=== PATIENT | female | born 1945 | race Caucasian/White ===

== ENCOUNTER → 2018-02-25 09:04 | Outpatient (CLI) | payer MEDICARE, OTHER, SELFPAY ==
[2018-02-25 10:43] LABS: Hemoglobin A1C% w Est Avg Glu 6.3 % (4.0-6.0)
[2018-02-25 11:08] LABS: Alanine Aminotransferase 25 IU/L (9-52); Albumin 4.1 g/dL (3.5-5.0); Albumin Globulin Ratio 0.9 (1.0-2.8); Alkaline Phosphatase 92 U/L (38-126); BUN Creatinine Ratio 22.5 (6-22); Bilirubin Total 0.9 mg/dL (0.2-1.3); Blood Urea Nitrogen 18 mg/dL (7-17); Calcium 8.9 mg/dL (8.4-10.2); Carbon Dioxide 22 mmol/L (22-32); Chloride 109 mmol/L (98-107); Cholesterol 174 mg/dL (140-199); Estimated Glomerular Filt Rate > 60.0 mL/min (>60); Globulin 4.7 g/dL (1.7-4.1); Glucose 119 mg/dL (80-110); HDL Cholesterol 51 mg/dL (40-60); LDL Cholesterol Calculated 96 mg/dL (<100); Sodium 142 mmol/L (137-145); Total Protein 8.8 g/dL (6.3-8.2); Triglycerides 137 mg/dL (35-150)
[2018-02-25 11:13] LABS: HEMOLYSIS 129 (0-50)
== END ==
PROVIDERS: PCP Physician Assistant; Visit Provider Internal Medicine
DX: E11.9 Type 2 diabetes mellitus without complications (principal); E78.00 Pure hypercholesterolemia, unspecified
CPT/HCPCS: 36415; 80053; 80061; 83036

== ENCOUNTER → 2018-03-09 10:25 | Outpatient (CLI) | payer MEDICARE, OTHER, SELFPAY ==
[2018-03-09 11:48] LABS: TSH w/ Reflex to FT4 4.33 uIU/mL (0.47-4.68)
[2018-03-13 02:57] LABS: Albumin 3.4 g/dL (3.8-4.8); Alpha 1 Globulin 0.3 g/dL (0.2-0.3); Alpha 2 Globulin 0.8 g/dL (0.5-0.9); Beta 1 Globulin 0.5 g/dL (0.4-0.6); Protein, Total 7.4 g/dL (6.1-8.1)
== END ==
PROVIDERS: PCP Internal Medicine; Visit Provider Internal Medicine
DX: E11.9 Type 2 diabetes mellitus without complications (principal); F32.9 Major depressive disorder, single episode, unspecified; I10 Essential (primary) hypertension
CPT/HCPCS: 36415; 84155; 84165; 84443

== ENCOUNTER → 2018-04-26 09:19 | Outpatient (CLI) | payer MEDICARE, OTHER, SELFPAY ==
[2018-04-26 09:44] LABS: Add Manual Diff / Slide Review NO; Basophils Percent Auto 0.5 % (0-2); Eosinophils Percent Auto 2.4 % (2-4); Hematocrit 39.1 % (36-46); Hemoglobin 13.2 g/dL (12.0-16.0); Lymphocytes Percent Auto 21.5 % (25-40); Mean Corpuscular HGB Conc 33.7 % (30-36); Mean Corpuscular Hemoglobin 29.4 PG (26-34); Mean Corpuscular Volume 87.1 fL (80-100); Monocytes Percent Auto 10.4 % (3-14); Neutrophils Absolute Auto 2500 /uL (3000-5900); Neutrophils Percent Auto 65.2 % (50-75); Platelet Count 216 X10^3/uL (150-400); Red Blood Cell Count 4.49 X10^6/uL (4.0-5.2); Red Cell Distribution Width 13.7 % (11.6-14.8); White Blood Cell Count 3.9 X10^3/uL (4.5-11.0)
[2018-04-26 10:09] LABS: Alanine Aminotransferase 29 IU/L (9-52); Alkaline Phosphatase 77 U/L (38-126); Aspartate Aminotransferase 23 IU/L (14-36); BUN Creatinine Ratio 17.5 (6-22); Bilirubin Total 0.3 mg/dL (0.2-1.3); Blood Urea Nitrogen 14 mg/dL (7-17); Calcium 8.8 mg/dL (8.4-10.2); Carbon Dioxide 26 mmol/L (22-32); Chloride 107 mmol/L (98-107); Estimated Glomerular Filt Rate > 60.0 mL/min (>60); Globulin 4.1 g/dL (1.7-4.1); Glucose 116 mg/dL (80-110); HEMOLYSIS < 15 (0-50); Lactate Dehydrogenase 382 U/L (313-618); Potassium 4.2 mmol/L (3.4-5.1); Sodium 144 mmol/L (137-145); Total Protein 8.1 g/dL (6.3-8.2)
[2018-04-28 13:58] LABS: Immunoglobulin A 243 mg/dL (81-463); Immunoglobulin G, Quantitative 1913 mg/dL (694-1618); Immunoglobulin M, Quantitative 357 mg/dL (48-271)
[2018-04-28 14:59] LABS: Free Kappa Light Chain 35.8 mg/L (3.3-19.4); Free Lambda 32.6 mg/L (5.7-26.3)
[2018-04-29 17:50] LABS: Albumin 3.4 g/dL (3.8-4.8); Alpha 1 Globulin 0.3 g/dL (0.2-0.3); Alpha 2 Globulin 0.8 g/dL (0.5-0.9); Beta 1 Globulin 0.5 g/dL (0.4-0.6); Protein, Total 7.4 g/dL (6.1-8.1)
[2018-04-29 20:06] LABS: Beta-2-Microglobulin 3.23 mg/L (< 2.52)
== END ==
PROVIDERS: PCP Internal Medicine; Visit Provider Internal Medicine Hematology & Oncology
DX: D47.2 Monoclonal gammopathy (principal)
CPT/HCPCS: 36415; 80053; 82232; 82784; 83615; 83883; 84155; 84165; 85025

== ENCOUNTER → 2018-12-07 15:34 | Outpatient (CLI) | payer MEDICARE, OTHER, SELFPAY ==
[2018-12-07 16:50] LABS: Erythrocyte Sedimentation Rate 47 MM/HR (0-20)
== END ==
PROVIDERS: Family Provider Internal Medicine; PCP Internal Medicine; Visit Provider Internal Medicine
DX: M35.3 Polymyalgia rheumatica (principal)
CPT/HCPCS: 36415; 85651

== ENCOUNTER → 2019-07-14 14:11 | Outpatient (CLI) | payer MEDICARE, OTHER, SELFPAY ==
[2019-07-14 15:26] LABS: Hemoglobin A1C% w Est Avg Glu 6.8 % (4.0-6.0)
== END ==
PROVIDERS: PCP Internal Medicine; Visit Provider Internal Medicine
DX: E11.9 Type 2 diabetes mellitus without complications (principal)
CPT/HCPCS: 36415; 83036

== ENCOUNTER → 2019-11-18 10:41 | Outpatient (CLI) | payer MEDICARE, OTHER, SELFPAY ==
--- NOTE | 2019-11-18 | DI.NM.S_ITS ---
PROCEDURE: NM KEVIN PERF SPECT R&S PHARM Rest and pharmacological stress myocardial perfusion SPECT with gated imaging and ejection fraction RADIOPHARMACEUTICAL: 27.3 mCi Tc-99m tetrafosmin IV at rest and 24.3 mCi Tc-99m tetrafosmin IV at peak effect of pharmacological stress. [id number] was performed. INDICATIONS: Dyspnea, unspecified TECHNIQUE: Radiopharmaceutical was injected at peak stress test, and also at rest. SPECT images were obtained. SPECT myocardial perfusion images were displayed in short axis, horizontal long axis, and vertical long axis views. Gated images were reviewed using [employer] software. COMPARISON: None. CARDIAC STRESS: A pharmacologic stress test was performed under the supervision of an attending staff, using an infusion of lexiscan 0.4m IV X1. Hemodynamic data: There is normal blood pressure and heart rate response to pharmacologic stress. Symptoms: The patient denied anginal chest pain. Aminophylline: none EKG: No diagnostic changes of ischemia; no ectopy. FINDINGS: Raw data: There is good myocardial uptake of radiotracer. No significant motion artifacts. Lpab-dn-xcmnr ratio is 0.27 (normal is less than 0.38 for tetrafosmin tracer). Left ventricle function: Gated images demonstrate normal left ventricular wall thickening. No segmental wall motion abnormalities. No transient ischemic dilation; TID is 0.78 (normal less than 1.3). Left ventricle resting end diastolic volume is 72 mL. Left ventricle stress ejection fraction is 89%; normal range is above 45%. Myocardial perfusion: There is normal distribution of activity in the right and left ventricular myocardium. No fixed or reversible perfusion defects. IMPRESSION: low risk, normal pharmaceutical nuclear stress test 1) No perfusion evidence of ischemia or infarction. 2) Normal left ventricular size, wall motion, and systolic function (EF post stress 89%0. 3) No ECG evidence of ischemia. 4) No angina during the study. 5) No prior nuclear stress test available for comparison. Dictated by: Stephanie Sykes MD on 11/21/2019 at 12:34 Approved by: Stephanie Sykes MD on 11/21/2019 at 12:36
--- NOTE | 2019-11-18 11:49 | PM.TREADMILL ---
Cardiac Stress Test Report Referral & Results Date Patient Seen: 11/18/19 Time Patient Seen: 11:49 Requesting provider: Marta Carroll Indication: dyspnea Rest ECG: sinus rhythm with incomplete RBBB Procedure Note: After lexiscan injection had minimal dyspnea, no chest discomfort. No significant ST changes on ECG after lexiscan injection, no ectopy. No reveral agent needed. Impression: Normal lexiscan stress test Nuclear images pending Please note: Actual ECG tracings can be found in the PACS system.
== END ==
PROVIDERS: PCP Internal Medicine; Referring Provider Physician Assistant; Visit Provider Physician Assistant
DX: R06.00 Dyspnea, unspecified (principal); R53.83 Other fatigue; R00.0 Tachycardia, unspecified
CPT/HCPCS: 78452; 93017; A9502; J2785

== ENCOUNTER → 2019-11-21 08:55 | Outpatient (CLI) | payer MEDICARE, OTHER, SELFPAY ==
[2019-11-21 10:07] LABS: Add Manual Diff / Slide Review NO; Basophils Absolute Auto 0 /uL (0-100); Basophils Percent Auto 0.4 % (0-2); Eosinophils Absolute Auto 0 /uL (0-450); Eosinophils Percent Auto 0.9 % (2-4); Hemoglobin 13.6 g/dL (12.0-16.0); Lymphocytes Absolute Auto 800 /uL (1100-4500); Mean Corpuscular HGB Conc 34.9 % (30-36); Mean Corpuscular Volume 85.9 fL (80-100); Monocytes Absolute Auto 400 /uL (0-900); Monocytes Percent Auto 12.6 % (3-14); Neutrophils Absolute Auto 2200 /uL (1500-7000); Neutrophils Percent Auto 64.1 % (50-75); Platelet Count 239 X10^3/uL (150-400); Red Blood Cell Count 4.54 X10^6/uL (4.0-5.2); White Blood Cell Count 3.5 X10^3/uL (4.5-11.0)
[2019-11-21 10:32] LABS: Erythrocyte Sedimentation Rate 40 MM/HR (0-20)
[2019-11-21 10:41] LABS: Hemoglobin A1C% w Est Avg Glu 7.4 % (4.0-6.0)
[2019-11-21 10:48] LABS: Alanine Aminotransferase 33 IU/L (<35); Albumin 4.2 g/dL (3.5-5.0); Alkaline Phosphatase 76 U/L (38-126); Aspartate Aminotransferase 37 IU/L (14-36); Bilirubin Total 0.5 mg/dL (0.2-1.3); Blood Urea Nitrogen 16 mg/dL (7-17); Calcium 9.3 mg/dL (8.4-10.2); Carbon Dioxide 32 mmol/L (22-32); Chloride 90 mmol/L (98-107); Estimated Glomerular Filt Rate > 60.0 mL/min (>60); Globulin 4.3 g/dL (1.7-4.1); Glucose 129 mg/dL (80-110); HEMOLYSIS < 15 (0-50); Lactate Dehydrogenase 337 U/L (313-618); Potassium 3.1 mmol/L (3.4-5.1); Sodium 133 mmol/L (137-145); Total Protein 8.5 g/dL (6.3-8.2)
[2019-11-21 10:57] LABS: Cholesterol 136 mg/dL (140-199); HDL Cholesterol 37 mg/dL (40-60); LDL Cholesterol Calculated 69 mg/dL (<100); Magnesium 2.4 mg/dL (1.6-2.3); Triglycerides 148 mg/dL (35-150)
[2019-11-21 10:59] LABS: C-Reactive Protein Quant < 0.5 mg/dL (<1.0)
[2019-11-21 11:18] LABS: TSH w/ Reflex to FT4 3.95 uIU/mL (0.47-4.68)
[2019-11-22 17:36] LABS: Free Kappa Lt Chains, Serum 45.7 mg/L (3.3-19.4); Free Lambda Lt Chains,Serum 39.1 mg/L (5.7-26.3)
[2019-11-24 16:14] LABS: Complement C3 152 mg/dL (82-167)
[2019-11-24 16:14] LABS: Beta-2-Microglobulin 2.9 mg/L (0.6-2.4)
== END ==
PROVIDERS: Internal Medicine Hematology & Oncology; PCP Internal Medicine; Referring Provider Physician Assistant; Visit Provider Internal Medicine Rheumatology
DX: M35.00 Sjogren syndrome, unspecified (principal); R70.0 Elevated erythrocyte sedimentation rate; R06.00 Dyspnea, unspecified; R53.83 Other fatigue; E78.2 Mixed hyperlipidemia; E11.9 Type 2 diabetes mellitus without complications; R00.0 Tachycardia, unspecified; D47.2 Monoclonal gammopathy
CPT/HCPCS: 36415; 80053; 80061; 82232; 83036; 83615; 83735; 83883; 84443; 85025; 85651; 86140; 86160

== ENCOUNTER → 2019-11-30 09:14 | Outpatient (CLI) | payer MEDICARE, OTHER, SELFPAY ==
--- NOTE | 2019-11-30 | DI.CT.S_ITS ---
PROCEDURE: CT ANGIO CHEST PE PROTOCOL INDICATIONS: Dyspnea, unspecified. TECHNIQUE: After the administration of intravenous contrast, 2 mm thick sections acquired from the pulmonary apices to the posterior costophrenic angles. 3-dimensional maximum intensity projection (MIP) coronal and sagittal reformats were then acquired through the thorax. For radiation dose reduction, the following was used: automated exposure control, adjustment of mA and/or kV according to patient size. COMPARISON: None. FINDINGS: Image quality: Excellent. Pulmonary arteries: Pulmonary arteries are normal in size, and demonstrate no intraluminal filling defects to suggest central pulmonary embolism. Lungs and pleura: 7 mm subpleural nodule within the right lower lobe posteriorly. 5 mm spiculated subpleural nodule within the right middle lobe lateral segment superiorly adjacent to the major fissure. Calcified subpleural nodule within the lateral lingula measuring 10 mm. No pleural effusions or pneumothorax. Central and peripheral airways are patent. Mediastinum: Heart size is normal, without pericardial effusion. There is calcification of the coronary vasculature. No mediastinal or hilar adenopathy. Thoracic aorta is normal in caliber and enhancement. Esophagus is normal in caliber, without hiatal hernia. Bones and chest wall: No suspicious bony lesions. Ribs and thoracic spine appear intact throughout. Thyroid gland is within normal limits. No axillary or supraclavicular adenopathy. Abdomen: Visualized upper abdominal solid organs appear normal in the early arterial phase of enhancement. IMPRESSION: 1. Right-sided pulmonary nodules as described above. Followup is recommended as below. 2. Lingular granuloma. 3. No acute process. No pulmonary embolus. 4. Coronary artery disease. Dictated by: Antonella Mendoza M.D. on 11/30/2019 at 10:10 Approved by: Antonella Mendoza M.D. on 11/30/2019 at 10:14
== END ==
PROVIDERS: PCP Internal Medicine; Referring Provider Internal Medicine; Visit Provider Internal Medicine
DX: R06.00 Dyspnea, unspecified (principal); R91.8 Other nonspecific abnormal finding of lung field; J98.4 Other disorders of lung; I25.10 Atherosclerotic heart disease of native coronary artery without angina pectoris
CPT/HCPCS: 71275; Q9967

== ENCOUNTER → 2019-12-05 06:58 | Outpatient (CLI) | payer MEDICARE, OTHER, SELFPAY ==
--- NOTE | 2019-12-05 | DI.ECHO.S_ITS ---
[facility] +---------+ : : [address] [place] : : : : [id number] : : : : Phone: [phone]+ Echocardiogram Report + + :Name: BEATRICE ORDOÑEZ Study Date: 12/05/2019 Height: 25.5 in: :[facility] Weight: 250 lb : : Gender: Female BSA: 1.1 m2 : :: 1945 Age: 74 yrs BP: 137/62 mmHg: :Reason For Study: DAMON : :Ordering Physician: Dr. Go : :Keith Performed By: Viridiana Page : + + Interpretation Summary The left ventricle is normal in size and wall thickness. The left ventricular ejection fraction is normal. The ejection fraction is estimated to be 65-70%. There are no focal wall motion abnormalities. The right ventricle is grossly normal size. The right ventricular systolic function is normal. The right ventricular systolic pressure is estimated to be at least 20 mmHg based on an estimated right atrial pressure of 3 mm Hg. The left atrium is severely dilated. The right atrium is moderately dilated. There is no significant valvular heart disease. The aortic root is normal size. No significant changes since prior study. Procedure: A two-dimensional transthoracic echocardiogram with color flow and Doppler was performed. The study quality was technically adequate. Comparison is made with the echocardiogram of 10/20/2014. The patient was in normal sinus rhythm during the exam. Left Ventricle: The left ventricle is normal in size and wall thickness. The left ventricular ejection fraction is normal. The ejection fraction is estimated to be 65-70%. There are no focal wall motion abnormalities. Diastolic parameters suggest a relaxation abnormality of the left ventricle, consistent with probable normal filling pressures. Right Ventricle: The right ventricle is grossly normal size. The right ventricular systolic function is normal. Atria: The left atrium is severely dilated. The right atrium is moderately dilated. There is no Doppler evidence for an interatrial shunt. Mitral Valve: The mitral valve is normal in structure and function. There is trace mitral regurgitation. Aortic Valve: The aortic valve is trileaflet. The aortic valve opens well. No aortic regurgitation is present. Tricuspid Valve: The tricuspid valve is normal in structure and function. There is a trace or physiologic amount of tricuspid regurgitation. The right ventricular systolic pressure is estimated to be at least 20 mmHg based on an estimated right atrial pressure of 3 mm Hg. Pulmonic Valve: The pulmonic valve is not well visualized. There is no significant valvular heart disease. Great Vessels: The aortic root is normal size. The ascending aorta is at the upper limits of normal in size. The pulmonary artery is not well visualized, but is probably normal size. The IVC is of normal diameter and collapses greater than 50% with a sniff. This suggests a low right atrial pressure of 3 mm Hg. Pericardium/ Pleura There is no pericardial effusion. There is no pleural effusion. MMode/2D Measurements & Calculations LVIDd: 4.1 cm LVOT diam: 2.2 cm LVIDs: 2.5 cm Ao root diam: 3.4 cm FS: 40.2 % asc Aorta Diam: 3.4 cm IVSd: 0.79 cm LVPWd: 0.77 cm LV shaffer. diameter/BSA (cm/m^2): 3.7 LV sys. diameter/BSA (cm/m^2): 2.2 LA A2 area: 25.3 cm2 RA long axis: 4.8 cm LA A4 area: 21.1 cm2 RA area: 17.3 cm2 LA length (vol): 5.3 cm RA vol: 53.2 ml LA vol: 85.3 ml RA : 48.1 ml/m2 LA vol index: 77.1 ml/m2 TAPSE: 2.2 cm Doppler Measurements & Calculations Ao V2 max: 161.9 cm/sec LVOT Max Jamaal: 114.5 cm/sec Ao V2 mean: 122.9 cm/sec LV V1 max P.2 mmHg Ao max P.5 mmHg LV V1 VTI: 25.3 cm Ao mean P.4 mmHg IFTIKHAR(I,D): 2.8 cm2 Ao V2 VTI: 35.4 cm IFTIKHAR(V,D): 2.8 cm2 sev ratio: 0.71 IFTIKHAR indexed to BSA (cm^2/m^2): 2.5 MV E max jamaal: 54.2 cm/sec TR max jamaal: 207.5 cm/sec MV A max jamaal: 86.9 cm/sec TR max P.2 mmHg MV E/A: 0.62 PA V2 max: 93.6 cm/sec Med Peak E' Jamaal: 7.8 cm/sec PA V2 mean: 70.3 cm/sec E/E' med: 7.0 PA mean P.1 mmHg Lat Peak E' Jamaal: 9.4 cm/sec PA Accel Time: 0.06 sec E/E' lat: 5.8 E/e' average: 6.4 MV dec time: 0.30 sec SV(LVOT): 99.6 ml Reading Physician:05:16 PM
== END ==
PROVIDERS: PCP Internal Medicine; Referring Provider Internal Medicine; Visit Provider Internal Medicine
DX: R06.00 Dyspnea, unspecified (principal)
CPT/HCPCS: 93306

== ENCOUNTER → 2019-12-13 09:46 | Outpatient (CLI) | payer MEDICARE, OTHER, SELFPAY ==
[2019-12-14 00:25] LABS: COVID19 Sendout Not Detected (Not Detect)
== END ==
PROVIDERS: PCP Internal Medicine; Visit Provider Nurse Practitioner
DX: Z01.812 Encounter for preprocedural laboratory examination (principal)
CPT/HCPCS: 87635

== ENCOUNTER → 2019-12-16 12:26 | Outpatient (CLI) | payer MEDICARE, OTHER, SELFPAY ==
--- NOTE | 2019-12-23 08:19 | PM.PFT.1 ---
Pulmonary Function Test Referral & Results Date Patient Seen: 12/16/19 Requesting provider: Donavan Parker Results: The spirometry demonstrates an FVC of 2.99 L which is 99% of predicted. The FEV1 was measured at 2.36 L which is 103% of predicted. The FEV1/FVC ratio was 79 which is 104% of predicted. Following the administration of bronchodilator there was 23% improvement in FEF 25-75%. Lung volumes show an SVC of 2.81 L which is 96% of predicted. The diffusing capacity was measured at 19.72 which is 77% of predicted. No hemoglobin value was provided, so no correction for potential anemia could be made, if appropriate. The maximum voluntary ventilation was slightly reduced Interpretation: This study seems to demonstrate normal spirometry although there is a minimal improvement in small airway flow based on change in FEF 25-75% as above after bronchodilator There may be a very minimal reduction in diffusing capacity, unless patient is anemic Clinical correlation suggested
== END ==
PROVIDERS: PCP Internal Medicine; Referring Provider Internal Medicine; Visit Provider Internal Medicine
DX: R06.02 Shortness of breath (principal)
CPT/HCPCS: 94060; 94726; 94729

== ENCOUNTER → 2020-01-21 11:48 | Outpatient (CLI) | payer MEDICARE, OTHER, SELFPAY ==
[2020-01-21 13:48] LABS: BUN Creatinine Ratio 14.5 (6-22); Blood Urea Nitrogen 11 mg/dL (7-17); Calcium 9.3 mg/dL (8.4-10.2); Carbon Dioxide 22 mmol/L (22-32); Chloride 108 mmol/L (98-107); Estimated Glomerular Filt Rate > 60.0 mL/min (>60); Glucose 96 mg/dL (80-110); HEMOLYSIS < 15 (0-50); Potassium 3.8 mmol/L (3.4-5.1); Sodium 138 mmol/L (137-145)
== END ==
PROVIDERS: PCP Internal Medicine; Referring Provider Internal Medicine; Visit Provider Internal Medicine
DX: I10 Essential (primary) hypertension (principal)
CPT/HCPCS: 36415; 80048

== ENCOUNTER → 2020-02-21 11:10 | Outpatient (CLI) | payer MEDICARE, OTHER, SELFPAY ==
[2020-02-21 11:59] LABS: BUN Creatinine Ratio 12.4 (6-22); Blood Urea Nitrogen 11 mg/dL (7-17); Calcium 9.7 mg/dL (8.4-10.2); Carbon Dioxide 27 mmol/L (22-32); Chloride 107 mmol/L (98-107); Estimated Glomerular Filt Rate > 60.0 mL/min (>60); Glucose 112 mg/dL (80-110); HEMOLYSIS < 15 (0-50); Potassium 3.8 mmol/L (3.4-5.1); Sodium 142 mmol/L (137-145)
== END ==
PROVIDERS: PCP Internal Medicine; Referring Provider Internal Medicine; Visit Provider Internal Medicine
DX: I10 Essential (primary) hypertension (principal); E78.2 Mixed hyperlipidemia
CPT/HCPCS: 36415; 80048

== ENCOUNTER → 2020-06-26 08:54 | Outpatient (CLI) | payer MEDICARE, OTHER, SELFPAY ==
[2020-06-26 10:25] LABS: Hemoglobin A1C% w Est Avg Glu 6.3 % (4.0-6.0)
[2020-06-26 10:32] LABS: Blood Urea Nitrogen 18 mg/dL (7-17); Carbon Dioxide 27 mmol/L (22-32); Chloride 109 mmol/L (98-107); Estimated Glomerular Filt Rate > 60.0 mL/min (>60); Glucose 78 mg/dL (80-110); HEMOLYSIS < 15 (0-50); Potassium 3.8 mmol/L (3.4-5.1); Sodium 139 mmol/L (137-145)
== END ==
PROVIDERS: PCP Internal Medicine; Referring Provider Internal Medicine; Visit Provider Internal Medicine
DX: E11.9 Type 2 diabetes mellitus without complications (principal); E87.6 Hypokalemia
CPT/HCPCS: 36415; 80048; 83036

== ENCOUNTER → 2020-07-05 09:35 | Outpatient (CLI) | payer MEDICARE, OTHER, SELFPAY ==
--- NOTE | 2020-07-05 09:37 | DI.RAD.S_ITS ---
PROCEDURE: XR DEXA AXIAL SKELETON INDICATIONS: PULMONARY NODULE,OSTEOPOROSIS COMPARISON: None. FINDINGS: This blank DEXA report has been sent in error by the PACS system. The correct and complete report will be forthcoming in 1-2 days. Thank you for your patience and understanding. Dictated by: Tegan Fulton MD, PhD on 07/05/2020 at 14:36 Approved by: Tegan Fulton MD, PhD on 07/05/2020 at 14:36
--- NOTE | 2020-07-05 09:38 | DI.CT.S_ITS ---
PROCEDURE: CT CHEST WO CON INDICATIONS: PULMONARY NODULE,OSTEOPOROSIS TECHNIQUE: Noncontrast 2.0-2.5 mm thick sections acquired from the pulmonary apices to the posterior costophrenic angles. 7 mm thick axial MIP and 5 mm coronal and sagittal reformats were then acquired. A low radiation dose technique was utilized. COMPARISON: [facility], CT, CT ANGIO CHEST PE PROTOCOL, 11/30/2019, 9:21. FINDINGS: Image quality: Diagnostic, given the low radiation dose technique. Lungs and pleura: Again noted are multiple right lung nodules. Nodule 1: 7 mm; RLL; series 3, image 192; stable. Nodule 2: 4 mm; RML; series 3, image 127; stable. Nodule 3: 3 mm; RLL; series 3, image 78; stable. There is a calcified nodule in the lingula, compatible with an old granuloma. Mediastinum: Heart size is normal. No pericardial effusion. Mild coronary artery atherosclerosis. No mediastinal adenopathy by size criteria. Thoracic aorta and central pulmonary arteries are normal in size. Esophagus is normal in caliber. Tiny hiatal hernia. Bones and chest wall: No suspicious bony lesions. No vertebral body compression fractures. No axillary or supraclavicular adenopathy by size criteria. Small axillary lymph nodes are present bilaterally, likely reactive. Thyroid gland is normal. Abdomen: Visualized upper abdomen solid organs and bowel loops appear normal in the absence of contrast. IMPRESSION: 1. Stable right lung nodules. Recommend continued follow-up. Please see enclosed follow-up recommendation. 2. Remote granulomatous disease in lingula. Fleischner Society criteria for SOLID lung nodule followup. Nodule size (mm)Low-risk patientHigh-risk patient<6 (single or multiple)No routine followup.Optional CT at 12 months. 6-8 (single or multiple)CT at 6-12 months, then optional CT at 18-24 mo.CT at 6-12 months, then CT at 18-24 months. >8 (single)CT at 3 months, PET-CT, or biopsy. Same as for low-risk pts. >8 (multiple)CT at 3-6 months, then optional CT at 18-24 mo.CT at 3-6 months, then CT at 18-24 months. Dictated by: Mario Alberto French M.D. on 07/05/2020 at 13:29 Approved by: Mario Alberto French M.D. on 07/05/2020 at 13:37
== END ==
PROVIDERS: PCP Internal Medicine; Referring Provider Internal Medicine; Visit Provider Internal Medicine
DX: Z13.820 Encounter for screening for osteoporosis (principal); Z78.0 Asymptomatic menopausal state; R91.8 Other nonspecific abnormal finding of lung field; E11.9 Type 2 diabetes mellitus without complications
CPT/HCPCS: 71250; 77080

== ENCOUNTER → 2021-01-23 07:45 | Outpatient (CLI) | payer MEDICARE, OTHER, SELFPAY ==
[2021-01-23 21:23] LABS: COVID19 - ORCAS (NP or Nasal) Negative (Negative)
== END ==
PROVIDERS: PCP Internal Medicine; Visit Provider Physician Assistant
DX: Z20.822 Contact with and (suspected) exposure to COVID-19 (principal)
CPT/HCPCS: U0003

== ENCOUNTER → 2021-11-13 11:42 | Outpatient (CLI) | payer MEDICARE, OTHER, SELFPAY ==
--- NOTE | 2021-11-13 11:45 | DI.RAD.S_ITS ---
PROCEDURE: XR CHEST 2V INDICATIONS: concern for PNA TECHNIQUE: 2 views of the chest were acquired. COMPARISON: None. FINDINGS: Surgical changes and devices: None. Lungs and pleura: There is mild diffuse basilar predominant reticulonodular pulmonary opacity. No pleural effusions or pneumothorax. Calcified granuloma within the left lower lobe. Mediastinum: Mediastinal contours are normal. Heart size is normal. Bones and chest wall: No suspicious bony abnormalities. Soft tissues appear unremarkable. IMPRESSION: Mild atypical pneumonia. Dictated by: Antonella Mendoza M.D. on 11/13/2021 at 11:59 Approved by: Antonella Mendoza M.D. on 11/13/2021 at 12:00
== END ==
PROVIDERS: PCP Family Medicine; Referring Provider Physician Assistant; Visit Provider Physician Assistant
DX: J18.9 Pneumonia, unspecified organism (principal); R50.9 Fever, unspecified
CPT/HCPCS: 71046